=== PATIENT | male | born 2000 | race Caucasian/White ===

== ENCOUNTER 2022-07-10 11:33 | Emergency (ER) | payer BC, SELFPAY ==
--- NOTE | 2022-07-10 11:38 | ED.GENADULT ---
HPI - General Adult General Chief complaint: Upper Respiratory Infection Stated complaint: Sore Throat Time Seen by Provider: 07/10/22 11:38 Source: patient Mode of arrival: ambulatory Limitations: no limitations History of Present Illness HPI narrative: 21-year-old male patient presents to the [facility] with complaints of sore throat watery eyes, runny nose that started yesterday. Patient denies taking any antihistamine since symptoms started. Denies fevers, body aches or chills. Denies chest pain, shortness of breath, abdominal pain, nausea, vomiting or diarrhea. Related Data Home Medications Medication Instructions Recorded Confirmed bupropion HCl 150 mg 24 hr tablet, 150 mg PO DAILY 07/10/22 07/10/22 extended release propranolol 10 mg tablet 10 mg PO DAILY PRN Anxiety 07/10/22 07/10/22 sertraline 100 mg tablet 150 mg PO DAILY 07/10/22 07/10/22 Allergies Allergy/AdvReac Type Severity Reaction Status Date / Time Sulfa (Sulfonamide AdvReac Mild Rash Verified 07/10/22 11:54 Antibiotics) Review of Systems Review of Systems: CONSTITUTIONAL: Denies fever, chills, or sweats. EYES: Denies visual changes, redness, or discharge. ENT: Positive rhinorrhea, congestion, sore throat, denies otalgia. CARDIOVASCULAR: Denies chest pain, palpitations, or edema. RESPIRATORY: Denies cough or dyspnea. GASTROINTESTINAL: Denies abdominal pain, nausea, vomiting, or diarrhea. GENITOURINARY: Denies dysuria or hematuria. SKIN: Denies rash or itching. MUSCULOSKELETAL: Denies back pain, joint pain, or myalgia. NEUROLOGIC: Denies headache, numbness, or weakness. PSYCHIATRIC: Denies anxiety or depression. PMFSH Comments At the time of my signature I agree with nursing past medical history, surgical, social, and family history. There is no relevant family history pertinent to the presenting complaint. Exam Narrative: GENERAL: Well-appearing, well-nourished, and in no acute distress. HEAD: Normocephalic, atraumatic. EYES: PERRLA and EOMI. ENT: Nares with erythema and edema and left nares swollen shut, no rhinorrhea or epistaxis. Mucous membranes moist. posterior pharynx with erythema and slight swelling present no exudates or lesions present. No tonsillar enlargement noted. NECK: Supple. No lymphadenopathy CHEST: Clear to auscultation. No respiratory distress. HEART: Regular rate and rhythm. No murmur heard. Normal peripheral pulses. ABDOMEN: Soft, nontender, nondistended, normal active bowel sounds. EXTREMITIES: Normal range of motion. No edema. SKIN: Warm, dry, no rash. NEURO: No focal deficits. Alert and oriented x3. Course Course Level of Care: Express Care Visit Vital Signs Vital signs: Vital Signs Temperature 36.3 C L 07/10/22 11:50 Pulse Rate 72 07/10/22 11:50 Respiratory Rate 16 07/10/22 11:50 Blood Pressure 128/64 07/10/22 11:50 Pulse Oximetry 98 07/10/22 11:50 Oxygen Delivery Room Air 07/10/22 11:50 Temperature 36.3 C L 07/10/22 11:50 Pulse Rate 72 07/10/22 11:50 Respiratory Rate 16 07/10/22 11:50 Blood Pressure 128/64 07/10/22 11:50 Pulse Oximetry 98 07/10/22 11:50 Oxygen Delivery Room Air 07/10/22 11:50 Vital signs reviewed Medical Decision Making MDM Narrative Medical decision making narrative: Pre here for patient is discharge home and encourage [id number] antihistamines to help with symptoms. Discussed with him that his strep test today is negative we will send that off to lab for culture. If the culture does come back positive we will call in antibiotic at that time. Patient verbalized understanding denies any other questions or concerns at this time. Differential Diagnosis Differential Diagnosis: differential diagnosis: Viral pharyngitis, pharyngitis, group A strep, infectious mononucleosis, gonococcal pharyngitis, exudative pharyngitis, oral candidiasis. Chronic allergies, postnasal drip, GERD, abscess formation, but glottitis, re
[2022-07-10 11:50] VITALS: BP 128/64; PULSE 72; RESP 16; TEMP 36.3; O2SAT 98
== END 2022-07-10 12:04 | disposition home or self-care (01) ==
PROVIDERS: Emergency Provider Nurse Practitioner Family
DX: J02.9 Acute pharyngitis, unspecified (principal); J30.9 Allergic rhinitis, unspecified
CPT/HCPCS: 87081; 87880; 99213; G0463